=== PATIENT | male | born 1985 | race Caucasian/White ===

== ENCOUNTER 2024-07-27 12:55 | Emergency (ER) | payer SELFPAY ==
[2024-07-27 13:05] VITALS: BP 151/77; O2SAT 99
--- NOTE | 2024-07-27 13:25 | ED Physician Documentation ---
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 He states the nail was lodged in the dorsum of his foot and he had to yank it out, he thinks it was "in his bone." He has been able to ambulate on it and denies any other concerns today. He is unsure of his last tetanus. PD PAST MEDICAL HISTORY - Past Medical History Past Medical History: No - Past Surgical History Past Surgical History: No - Present Medications Home Medications: Ambulatory Orders Medication Instructions Recorded Confirmed cephALEXin [Keflex] 500 mg PO Q6H #28 cap 07/27/24 - Allergies Allergies/Adverse Reactions: Allergies Allergy/AdvReac Type Severity Reaction Status Date / Time No Known Drug Allergies Allergy Verified 07/27/24 13:02 - Social History Does the pt smoke?: No Smoking Status: Never smoker Does the pt drink ETOH?: No Does the pt have substance abuse?: No - Immunizations Immunizations are current?: No - POLST Patient has POLST: No PD ED PE NORMAL - Vitals Vital signs reviewed: Yes - General General: Alert and oriented X 3, No acute distress, Well developed/nourished - Derm Derm: Normal color, Warm and dry, Other (There is a small nonbleeding puncture wound on the dorsum of the left foot, no surrounding erythema or hematoma. No other injuries) - Extremities Extremities: No deformity, No tenderness to palpate, Normal ROM s pain, No edema, No calf tenderness / cord Results - Vitals Vitals: Vital Signs - 24 hr 07/27/24 13:02 Temperature 36.7 C Heart Rate 65 Respiratory 15 Rate Blood Pressure 151/77 H O2 Saturation 99 Oxygen O2 Source Room air PD Medical Decision Making - ED course Complexity details: d/w patient ED course: 38-year-old male presented with a left foot puncture wound as described in HPI. The nail went through the top of the shoe into the dorsum of the foot and he reportedly had to pull it out and was concerned it was stuck into the bone. He is not diabetic, has no comorbid conditions and is unsure of his last tetanus. X-ray today does not reveal any retained foreign body or injury to the bone. He received updated tetanus today and we discussed the risks versus potential benefits of antibiotic prophylaxis. We like a prescription for antibiotics but he is not sure he will take them though advised that if you develop any signs of infection to start taking the antibiotics and follow-up. Otherwise patient to keep wound clean and dry. . Departure - Departure Disposition: 01 Home, Self Care Clinical Impression: Puncture wound of foot Qualifiers: Encounter type: initial encounter Laterality: left Qualified Code(s): S91.332A - Puncture wound without foreign body, left foot, initial encounter Condition: Good Instructions: ED Wound Puncture Foot Prescriptions: cephALEXin [Keflex] 500 mg PO Q6H #28 cap Comments: As we discussed, the risk of infection in an otherwise healthy person without diabetes or other chronic medical conditions is low. I recommend that you keep the wound clean with gentle soap and water and monitor closely. If you develop any redness or signs of infection then start the antibiotics, alternatively you can start them today to reduce the chance of developing an infection. There was no retained pieces or bone injury on the xray. We gave you a Tetanus booster today which is good for 10 years. Forms: PCP List
[2024-07-27] MEDS: TETANUS/DIPHTHERIA/PERTUSSIS 0.5 ML SYRINGE IM ONE (13:28)
--- NOTE | 2024-07-27 13:38 | XRAY Report ---
PROCEDURE: Foot 1-2V LT INDICATIONS: foreign body TECHNIQUE: 3 views of the foot were acquired. COMPARISON: None. FINDINGS: Bones: No fractures or dislocations. No suspicious bony lesions. Soft tissues: No radiopaque foreign body is seen. No abnormal soft tissue calcifications. IMPRESSION: No acute left foot fracture or dislocation. No radiopaque foreign body is seen. Reviewed by: Alejo Arthur MD on 07/27/2024 1:36 PM PDT Approved by: Alejo Arthur MD on 07/27/2024 1:36 PM PDT Station ID: [id number]
== END 2024-07-27 13:35 | disposition home or self-care (01) ==
LOC: ED 12:55
DX: S91.332A Puncture wound without foreign body, left foot, initial encounter (principal); W45.0XXA Nail entering through skin, initial encounter; Y93.H3 Activity, building and construction; Y92.69 Other specified industrial and construction area as the place of occurrence of the external cause; Y99.0 Civilian activity done for income or pay
CPT/HCPCS: 90471; 99283; 99284